=== PATIENT | male | born 1945 | race African-American/Black ===

== ENCOUNTER 2018-03-12 14:38 | Outpatient (CLI) | payer MEDICARE ==
--- NOTE | 2018-03-12 18:47 | ULT ---
CAROTID DOPPLER ULTRASOUND EVALUATION: 03/12/18 HISTORY: TIA. Multiple longitudinal and transverse images of the carotid arteries obtained using a multihertz linea r array transducer. Real time, color flow, and spectral waveform doppler analysis demonstrates minima l intimal thickening in the distal most aspect of the right and left common carotid arteries. No evid ence of increased flow velocity seen. No evidence of calcified plaque seen. No significant evidence o f ICA disease seen. Antegrade flow seen in both vertebral arteries. IMPRESSION: Minimal but not significant distal CCA noncalcified plaques. No other significant abnormality seen. POS: [facility]
--- NOTE | 2018-03-12 19:15 | MRI ---
BRAIN MRI NONCONTRAST: 03/12/18 INDICATION: TIA. FINDINGS: No evidence of mass effect, midline shift, or ventriculomegaly. No acute territorial infarction. Ther e are punctate susceptibility foci bilaterally, nonspecific. There is moderate chronic microvascular ischemic disease of the cerebral white matter. IMPRESSION: 1. No acute territorial infarction, mass effect or midline shift. 2. Moderate chronic ischemic disease. 3. Punctate foci of susceptibility which could relate to hemosiderin from patient's underlying v ascular disease and areas of remote ischemia. Given minute size, findings are of doubtful clinical si gnificance. POS: [facility]
== END 2018-03-12 14:39 | disposition home or self-care (01) ==
LOC: ULT 14:38
PROVIDERS: ATTEND Internal Medicine
DX: G45.9 Transient cerebral ischemic attack, unspecified (principal); I08.3 Combined rheumatic disorders of mitral, aortic and tricuspid valves; I67.82 Cerebral ischemia; I65.23 Occlusion and stenosis of bilateral carotid arteries
CPT/HCPCS: 70551; 93306; 93880

== ENCOUNTER 2018-04-03 08:36 | Outpatient (CLI) | payer MEDICARE ==
--- NOTE | 2018-04-03 15:26 | NM ---
NUCLEAR MEDICINE BRAIN IMAGING: HISTORY: A 73-year-old male with dementia with Lewy bodies. TECHNIQUE: A KIMBERLY scan with axial tomographic images of the brain was obtained 3 hours following the intravenous administration of 4.3 mCi iodine 123 Ioflupane. The patient was pretreated with 130 mg of potassium iodine orally 1 hour prior to the injection. FINDINGS: There is loss of normal and symmetric uptake in the striata bilaterally with focal regions of mild p eriod shaped activity, right greater than left. 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 POS: [facility]
== END 2018-04-03 08:37 | disposition home or self-care (01) ==
LOC: NM 08:36
PROVIDERS: ATTEND Psychiatry & Neurology Neurology
DX: G31.83 Neurocognitive disorder with Lewy bodies (principal); G20 Parkinson's disease
CPT/HCPCS: 78607; A9584